=== PATIENT | female | born 1970 | race Caucasian/White ===

== ENCOUNTER → 2017-08-01 | Outpatient (CLI) | payer BC ==
--- NOTE | 2017-08-01 16:09 | MAMMOGRAPHY REPORT ---
BILATERAL DIGITAL DIAGNOSTIC MAMMOGRAM TOMOSYNTHESIS WITH CAD: 08/01/2017 CLINICAL HISTORY: 6 Month Follow-up. TECHNIQUE: Breast tomosynthesis in addition to standard 2D mammography was performed. Current study was also evaluated with a Computer Aided Detection (CAD) system. Bilateral CC and MLO 2-D and tomosy nthesis images and spot magnification left CC and ML views were obtained. COMPARISON: Comparison is made to exams dated: 07/04/2016 mammogram, 11/30/2015 mammogram, 11/30/2015 ultrasound, 06/08/2015 aspiration, 06/08/2015 mammogram, and 06/08/2015 stereotactic biopsy - [facility]. BREAST COMPOSITION: The tissue of both breasts is heterogeneously dense, which may obscure small mas ses. FINDINGS: Spot magnification views of the left breast again demonstrate a small 1 mm cluster of calc ifications in the left 9:00 breast anteriorly. The calcifications are stable dating back to the May 2015 exam, and are considered benign given long-term stability. The biopsy marker clip from prior a ttempted stereotactic biopsy is again noted in the left subareolar breast. The remainder of both breasts are stable compared to prior exams, without suspicious masses, calcific ations, or areas of architectural distortion noted. IMPRESSION: ACR BI-RADS CATEGORY 2: BENIGN Small cluster of calcifications in the left 9:00 breast is stable dating back to the May 2015 exam, and considered benign given long-term stability. There is no mammographic evidence of malignancy in either breast. A 1 year screening mammogram is recommended. The patient has been verbally notified o f the results. Approximately 10% of breast cancers are not detected with mammography. A negative mammographic report should not delay biopsy if a clinically suggestive mass is present. Vivian Pierre M.D. /:08/01/2017 15:16:54 [employer] Engineer: Nimisha KOO(Vania)(Thang), [facility] letter sent: Normal 1/2 BI-RADS Code: ACR BI-RADS Category 2: Benign
== END | disposition home or self-care (01) ==
LOC: C.MAMM 14:04
PROVIDERS: ATTEND Nurse Practitioner Family
DX: R92.1 Mammographic calcification found on diagnostic imaging of breast (principal)